=== PATIENT | male | born 1970 | race Two or more races ===

== ENCOUNTER 2023-01-27 14:12 | Emergency (ER) | payer MEDICAID, OTHER ==
[~2023-01-27] VITALS: Ht 167.6 cm; Wt 78.0 kg
[2023-01-27 14:36] VITALS: BP 132/95
[2023-01-27] MEDS ORDERED: IBUPROFEN 400 MG TABLET ONE (14:50)
[2023-01-27] MEDS ORDERED: IBUPROFEN 400 MG TABLET PO ONE (15:00)
--- NOTE | 2023-01-27 16:15 | NUR ---
Patient discharged to home in stable condition. Written and verbal after care instructions given. Patient verbalizes understanding of instruction.
== END 2023-01-27 16:15 | disposition home or self-care (01) ==
LOC: ER 14:13
DX: S63.095A Other dislocation of left wrist and hand, initial encounter (principal); F17.200 Nicotine dependence, unspecified, uncomplicated; W01.0XXA Fall on same level from slipping, tripping and stumbling without subsequent striking against object, initial encounter; Y93.89 Activity, other specified; Y92.89 Other specified places as the place of occurrence of the external cause; Y99.8 Other external cause status
CPT/HCPCS: 73110; 73130-TC